=== PATIENT | male | born 1985 | race Caucasian/White ===

== ENCOUNTER 2018-04-27 07:12 | Day surgery (SDC) | payer OTHER ==
[~2018-04-27 07:12] MED LIST: Lactated Ringers 1,000 ML IV SCH; Sodium Chloride 0.9% 10 ML Syringe FLUSH PRN
[2018-04-27] MEDS ORDERED: Propofol 200 MG/20 ML SDV IV ONE (08:50)
--- NOTE | 2018-04-27 09:31 | PCM.OPNOTE ---
- General Post-Op/Procedure Note Date of Surgery/Procedure: 04/27/18 Operative Procedure(s): c scope with bx Findings: colitis involving the rectum and sigmoid Pre Op Diagnosis: diarrhea and hematochezia Post-Op Diagnosis: colitis involving the rectum and sigmoid Anesthesia Technique: [facility] [place] Primary Surgeon: Ramu Bess Anesthesia Provider: Leni Mccarty Pathology: random bx of terminal ileum, colon bx of sigmoid and rectum Complications: None Condition: Good Free Text/Narrative:: see dictation
--- NOTE | 2018-04-27 10:37 | OR ---
DATE OF OPERATION: 04/27/2018 SURGEON: Ramu Bess MD PROCEDURES PERFORMED: Colonoscopy with cold forceps biopsy. PREOPERATIVE DIAGNOSES: Personal history of diarrhea and some hematochezia. POSTOPERATIVE DIAGNOSES: Normal terminal ileum and, what appears to be, colitis of the sigmoid and rectum. INDICATIONS FOR PROCEDURE: This is a 33-year-old white male who presents with a history of some diarrhea as well as some blood per rectum. He was offered and accepted colonoscopy. DESCRIPTION OF PROCEDURE: After an excellent IV sedation was administered, digital rectal exam was performed. No marked abnormality was noted. The flexible colonoscope was inserted to the cecum without difficulty. The prep was excellent. The terminal ileum was intubated, and the following findings were noted. Terminal ileum, unremarkable and biopsies were taken. Ascending colon, unremarkable and biopsies were taken. Transverse colon, unremarkable and biopsies were taken. Descending colon, unremarkable and biopsies were taken. Sigmoid and rectum, mild inflammatory changes were apparent. These were biopsied and submitted in a separate container. Retroflexing the scope, there was no evidence of internal hemorrhoids. Colon was deflated. The scope was removed. The patient tolerated the procedure well and was taken to recovery room in a good condition. /[id number] /MODL
== END 2018-04-27 10:02 | disposition home or self-care (01) ==
LOC: FB.SDS 07:12
PROVIDERS: ATTEND Surgery
DX: K52.9 Noninfective gastroenteritis and colitis, unspecified (principal); K62.89 Other specified diseases of anus and rectum; F41.9 Anxiety disorder, unspecified; Z79.899 Other long term (current) drug therapy
CPT/HCPCS: 45380; J2704; J7120; 88305